=== PATIENT | female | born 1965 | race African-American/Black ===

== ENCOUNTER 2019-08-11 00:05 | Emergency (ER) | payer MEDICAID ==
[~2019-08-11] VITALS: Ht 162.6 cm; Wt 68.0 kg
[2019-08-11 02:29] VITALS: BP 147/79
== END 2019-08-11 02:21 | disposition home or self-care (01) ==
LOC: ER 00:05
DX: S70.361A Insect bite (nonvenomous), right thigh, initial encounter (principal); J45.909 Unspecified asthma, uncomplicated; W57.XXXA Bitten or stung by nonvenomous insect and other nonvenomous arthropods, initial encounter; Y93.89 Activity, other specified; Y92.018 Other place in single-family (private) house as the place of occurrence of the external cause
CPT/HCPCS: 99282